=== PATIENT | male | born 2000 | race Caucasian/White ===

== ENCOUNTER 2020-11-23 16:29 | Emergency (ER) | payer OTHER ==
[~2020-11-23 16:29] MED LIST: BACTRIM DS TAB1 EACH PO
[2020-11-23] MEDS ORDERED: KEFLEX250 MG PO (18:52)
== END 2020-11-23 19:40 | disposition home or self-care (01) ==
LOC: FER 16:29
DX: S91.114A Laceration without foreign body of right lesser toe(s) without damage to nail, initial encounter (principal); S90.31XA Contusion of right foot, initial encounter; Z23 Encounter for immunization; W22.8XXA Striking against or struck by other objects, initial encounter; Y92.69 Other specified industrial and construction area as the place of occurrence of the external cause; Y99.0 Civilian activity done for income or pay
CPT/HCPCS: 73630; 90471; 90715